=== PATIENT | male | born 1955 | race Caucasian/White ===

== ENCOUNTER → 2017-12-31 12:19 | Day surgery (SDC) | payer BC ==
[~2017-12-31 12:19] MED LIST: Acetaminophen TAB* 325 MG PO PRN; Buffered Lidocaine 0.9% SYRIN* 5 ML/SYR SYRINGE INTRADERM ONE; Cyclopentolate 1% OPTH.SOL* 2 ML BTL ONE; Ketorolac 0.5% OPHTH (NF) 0.5 % 5 ML BTL ONE; Lidocaine 1%* 5 ML VIAL ONE; Lidocaine 2% EPI 1:200000 MPF*10-20 ML VIAL ONE; Midazolam* 1 MG/ML 2 ML VIAL (2 MG) ONE; Neomycin/Polymy/Dex OPTH.SUSP* MAXITROL 0.1% 5 ML ONE; Phenylephrine 2.5% OPTH.SOL* 2 ML BTL ONE; Povidone Iodine 5% OPTH* 30 ML BTL ONE; Proparacaine 0.5% OPHTH.SOL* 15 ML BTL ONE; acetaZOLAMIDE TAB* 250 MG ONE; fentaNYL* 50 MCG/ML 2 ML VIAL (100 MCG VIAL) ONE
[2017-12-31 15:07] VITALS: BP 126/79
--- NOTE | 2018-01-01 02:14 | OP ---
DATE OF OPERATION: 12/31/17 [facility] DATE OF : 53 SURGEON: Ankit Paz MD PREOPERATIVE DIAGNOSIS: Cataract, right eye. POSTOPERATIVE DIAGNOSIS: Cataract, right eye. OPERATIVE PROCEDURE: Extracapsular cataract extraction with intraocular lens implant right eye. DESCRIPTION OF PROCEDURE: The patient was brought to the operating room after being given 1/2% Alcaine with epinephrine drops in the preoperative area. The eye was prepped and draped in the usual sterile fashion. Sterile drape and eyelid speculum were placed. Again, topical 1/2% Alcaine with epinephrine was given. A paracentesis incision was made at the 9 o'clock position with the No.75 blade. Clear cornea incision 2.2 x 2.2-mm was created at the 12 o'clock position starting at the anterior limbus using the 2.2-mm keratome. The anterior chamber was irrigated with 0.4 mL of 1% non-preservative intracameral lidocaine and filled with DisCoVisc. A capsulorrhexis was completed using the cystotome and the Utrata forceps. Hydrodissection was performed with balanced salt solution. The lens nucleus was removed with the Phacoemulsification handpiece without incident. Cortex was removed with the irrigation-aspiration handpiece. The capsular bag was re-inflated using DisCoVisc and an [id number] implant was inserted with the shooter. The irrigation-aspiration handpiece was used to remove all residual DisCoVisc. The eye was refilled with balanced salt solution and the wound checked and found to be watertight. Topical Maxitrol drops were given. [id number]/[facility] #: [id number] [facility]
== END | disposition home or self-care (01) ==
LOC: OREAST 12:19
PROVIDERS: ATTEND Specialist
DX: H25.811 Combined forms of age-related cataract, right eye (principal); E11.3293 Type 2 diabetes mellitus with mild nonproliferative diabetic retinopathy without macular edema, bilateral; Z87.891 Personal history of nicotine dependence; Z88.0 Allergy status to penicillin
CPT/HCPCS: A9270-GY; J2250; J3010; V2632

== ENCOUNTER → 2018-01-07 12:34 | Day surgery (SDC) | payer BC ==
[~2018-01-07 12:34] MED LIST changes: -Cyclopentolate 1% OPTH.SOL* 2 ML BTL ONE; -Ketorolac 0.5% OPHTH (NF) 0.5 % 5 ML BTL ONE; -Lidocaine 1%* 5 ML VIAL ONE; -Lidocaine 2% EPI 1:200000 MPF*10-20 ML VIAL ONE; -Neomycin/Polymy/Dex OPTH.SUSP* MAXITROL 0.1% 5 ML ONE; -Phenylephrine 2.5% OPTH.SOL* 2 ML BTL ONE; -Povidone Iodine 5% OPTH* 30 ML BTL ONE; -Proparacaine 0.5% OPHTH.SOL* 15 ML BTL ONE; -acetaZOLAMIDE TAB* 250 MG ONE
[2018-01-07 15:00] VITALS: BP 114/74
--- NOTE | 2018-01-08 06:20 | OP ---
DATE OF OPERATION: 01/07/18 [facility] DATE OF : 53 SURGEON: Ankit Paz M.D. PREOPERATIVE DIAGNOSIS: Cataract left eye. POSTOPERATIVE DIAGNOSIS: Cataract left eye. OPERATIVE PROCEDURE: Extracapsular cataract extraction with intraocular lens implant left eye. DESCRIPTION OF PROCEDURE: The patient was brought to the operating room after being given 1/2% Alcaine with epinephrine drops in the preoperative area. The eye was prepped and draped in the usual sterile fashion. Sterile drape and eyelid speculum were placed. Again, topical 1/2% Alcaine with epinephrine was given. A paracentesis incision was made at the 3 o'clock position with the No.75 blade. Clear cornea incision 2.2 x 2.2-mm was created at the 6 o'clock position starting at the anterior limbus using the 2.2-mm keratome. The anterior chamber was irrigated with 0.4 mL of 1% non-preservative intracameral lidocaine and filled with DisCoVisc. A capsulorrhexis was completed using the cystotome and the Utrata forceps. Hydrodissection was performed with balanced salt solution. The lens nucleus was removed with the Phacoemulsification handpiece without incident. Cortex was removed with the irrigation-aspiration handpiece. The capsular bag was re-inflated using DisCoVisc and an [id number] implant was inserted with the shooter. The irrigation-aspiration handpiece was used to remove all residual DisCoVisc. The eye was refilled with balanced salt solution and the wound checked and found to be watertight. Topical Maxitrol drops were given. [id number]/[facility] #: [id number] [facility]
== END | disposition home or self-care (01) ==
LOC: OREAST 12:34
PROVIDERS: ATTEND Specialist
DX: H25.812 Combined forms of age-related cataract, left eye (principal); E11.3293 Type 2 diabetes mellitus with mild nonproliferative diabetic retinopathy without macular edema, bilateral; M25.561 Pain in right knee; Z87.891 Personal history of nicotine dependence; Z88.0 Allergy status to penicillin; Z96.1 Presence of intraocular lens
CPT/HCPCS: J2250; J3010; V2632

== ENCOUNTER → 2018-02-12 07:54 | Day surgery (SDC) | payer BC ==
--- NOTE | 2018-02-03 07:44 | HP ---
HISTORY AND PHYSICAL: DATE OF ADMISSION: 02/12/18 ADMITTING PHYSICIAN: Dr. Mima العراقي.* (DICTATED BY PACHECO JEAN) PROCEDURE: Right knee arthroscopic evaluation with partial meniscectomy. PROCEDURE DATE: 02/12/18. REASON FOR VISIT: Right knee pain. HISTORY OF PRESENT ILLNESS: The patient is a pleasant 62-year-old male with ongoing right knee pain who was found on MRI examination to have both medial and lateral meniscal tears. Due to his increased pain, he has elected to undergo a partial meniscectomy on 02/12/[address] العراقي. PAST MEDICAL HISTORY: Diabetes type 2, [id number]. PAST SURGICAL HISTORY: 1. Appendectomy. 2. Bilateral cataracts. MEDICATIONS: 1. Metformin 500 mg 2 tablets by mouth twice daily. 2. Aleve 200 mg p.r.n. 3. Excedrin Migraine p.r.n. ALLERGIES: PENICILLIN. FAMILY MEDICAL HISTORY: Mother with liver cancer, father heart disease with NH at age 60. SOCIAL HISTORY: Prior tobacco use, in the 1970s, non since that time. Rare alcohol use. Currently lives with his at home. 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 REVIEW OF SYSTEMS: Denies lightheadedness, fever, chills, nausea, vomiting, constipation, diarrhea, hematuria, urinary symptoms, seizure, stroke, epilepsy, heart attack, chest pain, shortness of breath, cough. Positive for chronic back pain with sciatica and right knee pain. No difficulty with anesthesia in the past. No bleeding or clotting disorders. No thyroid disease. No difficulty with wound healing. PHYSICAL EXAMINATION GENERAL: Well appearing, no acute distress, alert and oriented, appears younger than staged age. HEENT: Normocephalic, atraumatic. Trachea midline. LUNGS: Clear to auscultation bilaterally. No crackles, rhonchi or wheezes. HEART: Regular rate and rhythm. No murmurs, gallops or rubs. ABDOMEN: Soft, nontender, and nondistended. Negative CVA tenderness bilaterally. MUSCULOSKELETAL: Right knee with minimum joint effusion. Tenderness to palpation over medial and lateral joint line. Range of motion is 0 to 130 degrees. Sensation intact bilaterally to knee. Posterior tibial pulse 2+. Negative Homans' sign. Positive dorsiflexion and plantar flexion. DIAGNOSTIC STUDIES: MRI dated 01/19/18 shows a chronic osteochondral defect in the weightbearing portions of the medial femoral condyle with advanced degenerative osteopathy at the medial joint compartment. A complex tear, posterior horn medial and the body, medial meniscal tear with an oblique horizontal component extending into the tibial articulation service with a partial radial tear at the posterior root and discoid variant lateral meniscus with nondisplaced free edge longitudinal tear. ASSESSMENT: Medial and lateral meniscal tears, right knee. PLAN: The patient has elected to undergo a right total knee arthroplasty. He will follow up with his primary care doctor for clearance on 02/07/18. He is currently scheduled for arthroscopic surgery on 02/12/18, by Dr. Mima العراقي. The procedure was reviewed with the patient who voiced full understanding. He had no other questions or concerns. PACHECO JEAN [id number]/[facility] #: [id number] AMYAA
[~2018-02-12 07:54] MED LIST changes: -Acetaminophen TAB* 325 MG PO PRN; +Clindamycin 900 MG/D5W BAG(*) 900 MG/50 ML BAG IVPB ONE; +EPINEPHRINE 1 MG/ML 1 ML VIAL ONE; +Lactated Ringers 1000 ML Bag* 1,000 ML IV SCH; +Lidocaine 2% PF * 5 ML VIAL ONE; -Midazolam* 1 MG/ML 2 ML VIAL (2 MG) ONE; +Naloxone* 0.4 MG/ML 1 ML VIAL IV PRN; +Propofol* 10 MG/ML 20 ML BTL ONE; +Sodium Citrate/Citric Acid* 15 ML UDC ONE; +Sodium Citrate/Citric Acid* 15 ML UDC PO ONE; +methylPREDNISolone ACETATE 80* 80 MG/ML 1 ML VIAL ONE
[2018-02-12 12:10] VITALS: BP 136/92
--- NOTE | 2018-02-13 05:41 | OP ---
DATE OF OPERATION: 02/12/18 - [facility] DATE OF : 53 SURGEON: Mima العراقي MD INFORMATION TECHNOLOGY AUDITOR: PACHECO Robins. Mr. Weldon did help throughout the procedure with preparation of the leg, wound retraction, manipulation of the knee, and wound closure. ANESTHESIOLOGIST: Dr. Bowen. ANESTHESIA: General. PRE-OP DIAGNOSIS: Right knee medial meniscal tear with moderate to severe degenerative osteoarthritis. POST-OP DIAGNOSIS: Right knee medial meniscal tear, lateral meniscal tear, large osteochondral defect of the medial femoral condyle, advanced arthritis in the medial and patellofemoral compartments. OPERATIVE PROCEDURE: Right knee arthroscopy with partial medial meniscectomy, partial lateral meniscectomy, medial compartment chondroplasty. ESTIMATED BLOOD LOSS: Less than 25 cc. COMPLICATIONS: None. SPECIMEN: None. BRIEF HISTORY/INDICATIONS: Mr. Felipe is a 61-year-old gentleman with several months of acute knee pain and mechanical symptoms. Meniscal symptoms were confirmed on MRI with visible medial meniscal tear. The patient was counseled that I did see significant arthritic changes in his knee as well. The patient did not wish to proceed with the replacement and instead wished to try a right knee arthroscopy with partial medial meniscectomy, possible chondroplasty, and synovectomy. Informed consent was obtained from the patient. He understood the risks of surgery included, but were not limited to, bleeding, infection, damage to nearby structures, continued pain, need for further surgery, re-tear of the meniscus, stroke, heart attack, blood clot, and . He wished to proceed. INTRAOPERATIVE FINDINGS: Intraoperatively, the patient was noted to have a quite significant osteochondral defect in the medial femoral condyle. Not only was cartilage missing, but there was some bone missing. He had grade 3 and 4 Outerbridge cartilage changes of the medial and patellofemoral compartments with cartilage flapping. He had a large tear in the posterior one-half of the medial meniscus in the white-red zone. He had a radial type tear in the mid portion of the lateral meniscus involving the white-red zone. DESCRIPTION OF THE PROCEDURE: Mr. Felipe was identified in the pre- anesthesia unit. His right lower extremity was marked as the correct operative site. Informed consent was signed and placed in the chart. The patient was taken to the operating room and placed under general anesthesia. Right lower extremity was prepped and draped in the usual sterile fashion. Preop time-out was made to correctly identify the patient's side and site. Appropriate perioperative antibiotics were given within 1 hour of incision. A 0.5 cm lateral portal incision was made with #10 blade and carried down to the capsule. Trocar was introduced. As soon as the light and water sources were turned on, there was immediate visualization of the suprapatellar pouch. A tour was performed. Suprapatellar pouch showed no obvious abnormality. Patellofemoral compartment showed grade 3 and 4 Outerbridge cartilage changes with exposed subchondral bone and complete cartilage loss. Medial gutter showed no loose body or plica. Medial compartment showed a large osteochondral defect involving the majority of the medial femoral condyle. There was cartilage flapping and grade 3 and 4 Outerbridge changes. Mid portion of the medial meniscus had a tear in the red-white zone with some displacement anteriorly. The ACL and PCL appeared to be intact. The knee was placed in the [id number] position. There was a radial tear in the mid portion of the lateral meniscus. There were no significant degenerative changes in the lateral compartment. Lateral gutter showed no abnormality or loose body. Under direct visualization, a medial portal incision was made with a 10 blade. A probe was introduced and a second tour of the knee joint was performed. There were no additional findings. Radiofrequency ablation wand was introduced and used to remove some synovitis from the anterior joint line to improve visualization. Some cartilage flaps along the medial femoral condyle and osteochondral defect were smoothed using the radiofrequency ablation wand. This chondroplasty was performed conservatively. Next, a straight biter and shaver were used to perform partial medial meniscectomy. The tear was excised to smooth border. This was in the red- white zone. Further probing of the medial meniscus showed no additional tears or flipped fragments. The knee was placed in a [id number] position. Straight biter and shaver were used to perform partial lateral meniscectomy. The radial tear was excised until there was a smooth border of the meniscus. Further probing of the lateral meniscus showed no additional tears or flipped fragments. The knee was copiously irrigated with sterile saline. All instruments were removed. The incisions were closed using 3-0 nylon suture. Intraarticular injection of 80 mg Depo-Medrol and 6 cc of 0.25% Marcaine was placed in the knee joint. Incisions were covered with Xeroform, 4x4s, and Webril. Severiano wrap and cold packs were placed over this. The patient's anesthesia was reversed without difficulty. He was taken to the PACU in stable condition. Intended weightbearing will be weightbearing as tolerated. Intended DVT prophylaxis will be aspirin. [id number]/[facility] #: [id number] MTDD
== END | disposition home or self-care (01) ==
LOC: OR 07:54
PROVIDERS: ATTEND Orthopaedic Surgery Adult Reconstructive Orthopaedic Surgery
DX: M23.203 Derangement of unspecified medial meniscus due to old tear or injury, right knee (principal); M23.200 Derangement of unspecified lateral meniscus due to old tear or injury, right knee; M17.11 Unilateral primary osteoarthritis, right knee; M93.961 Osteochondropathy, unspecified, right lower leg; E11.9 Type 2 diabetes mellitus without complications; Z79.84 Long term (current) use of oral hypoglycemic drugs; Z87.891 Personal history of nicotine dependence
CPT/HCPCS: A9270-GY; J1040; J2704; J3010